=== PATIENT | male | born 1960 | race Caucasian/White ===

== ENCOUNTER → 2021-08-31 | Outpatient (CLI) | payer BC ==
[2021-08-31 16:05] LABS: HEMOGLOBIN 16.7 gm/dl (14.0-17.5); RED BLOOD COUNT 5.7 M/UL (4.20-5.50); WHITE BLOOD COUNT 8.6 K/UL (4.5-11.0)
[2021-08-31 16:26] LABS: BUN/CREATININE RATIO 14 (0-10)
== END ==
LOC: LAB 15:30
PROVIDERS: Physician Assistant
DX: R20.2 Paresthesia of skin (principal)
CPT/HCPCS: 36415; 80048; 85025

== ENCOUNTER → 2021-10-02 | Outpatient (CLI) | payer BC | LOC: ECHO 09:00 → NM 10:00 | DX: I11.9 Hypertensive heart disease without heart failure (principal); E78.2 Mixed hyperlipidemia; I27.20 Pulmonary hypertension, unspecified; R94.39 Abnormal result of other cardiovascular function study | CPT/HCPCS: ECHO; 78452; 93306; A9502 ==